=== PATIENT | male | born 2005 | race Caucasian/White ===

== ENCOUNTER 2023-01-20 21:12 | Emergency (ER) | payer OTHER, SELFPAY ==
[2023-01-20] MEDS ORDERED: Ondansetron PF 4 MG/2 ML Vial ONE (21:44)
[2023-01-20] MEDS ORDERED: Ketorolac Tromethamine 30 MG/ML VIAL ONE (21:44)
[2023-01-20 21:50] LABS: #Basophils 0.1 10x3/uL (0.0-0.2); #Eosinphils 0.1 10x3/uL (0.0-0.5); #Monocytes 0.9 10x3/uL (0.0-1.1); #Neutrophils 5.4 10x3/uL (1.5-8.4); %Basophils 0.8 % (0.0-2.0); %Eosinophils 0.5 % (0.0-6.0); %Lymphocytes 37.2 % (18.0-47.0); %Monocytes 8.5 % (0.0-10.0); %Neutrophils 52.8 % (40.0-75.0); Hematocrit 42.9 % (38.8-50.0); Hemoglobin 15.2 g/dL (13.5-17.5); Mean Corpuscular HGB CONC 35.4 g/dL (32.0-36.0); Mean Corpuscular Hemoglobin 29.8 pg (27.0-33.0); Mean Corpuscular Volume 84.1 fl (81.2-95.1); Mean Platelet Volume 10.1 fl (7.4-10.4); Platelet Count 343 10x3/uL (150-450); RBC Distribution Width 12.3 % (11.5-14.5); White Blood Cell (WBC) Count 10.1 10x3/uL (3.5-10.5)
[2023-01-20 22:00] LABS: ALT (SGPT) 25 U/L (8-55); AST (SGOT) 35 U/L (10-45); Acetaminophen Less than 10 mcg/mL (10.0-30.0); Albumin 4.9 g/dL (3.5-5.0); Alcohol 111.7 mg/dL (Less than 10); Alkaline Phosphatase 85 U/L (50-130); Anion Gap 20 mmol/L (10-20); BUN (Urea Nitrogen) 9 mg/dL (8.4-21.0); Bilirubin, Total 0.6 mg/dL (0.2-1.2); Calc. Creatinine Clearance 0 mL/min (70-130); Calcium 9.2 mg/dL (7.8-10.44); Carbon Dioxide 17 mmol/L (22-29); Chloride 104 mmol/L (98-107); Estimated GFR 98; Globulin 2.6 g/dL (2.4-3.5); Glucose 139 mg/dL (70-105); Potassium 3.6 mmol/L (3.5-5.1); Protein, Total 7.5 g/dL (6.0-8.3); Salicylate Less than 8.0 mg/dL (15.0-30.0); Sodium 137 mmol/L (136-145)
[2023-01-20] MEDS ORDERED: Bupivacaine PF 0.5% 30 ML VIAL ONE (23:25)
== END 2023-01-21 00:48 | disposition short-term general hospital (02) ==
LOC: CSHERS 21:12
DX: S02.612A Fracture of condylar process of left mandible, initial encounter for closed fracture (principal); S02.611A Fracture of condylar process of right mandible, initial encounter for closed fracture; S01.81XA Laceration without foreign body of other part of head, initial encounter; G93.89 Other specified disorders of brain; V26.09XA Other motorcycle driver injured in collision with other nonmotor vehicle in nontraffic accident, initial encounter
CPT/HCPCS: 12013; 36415; 70450; 70486; 72125; 80053; 80307; 85025; 96374; 96375; G0390; J1885; J2405; S0020

== ENCOUNTER 2023-02-22 15:39 | Outpatient (CLI) | payer OTHER | END 2023-02-22 15:40 | disposition home or self-care (01) | LOC: CSHCT 15:39 | PROVIDERS: ATTEND Surgery | DX: G93.89 Other specified disorders of brain (principal); S02.91XA Unspecified fracture of skull, initial encounter for closed fracture; S02.612D Fracture of condylar process of left mandible, subsequent encounter for fracture with routine healing; S02.611D Fracture of condylar process of right mandible, subsequent encounter for fracture with routine healing | CPT/HCPCS: 70450 ==